=== PATIENT | female | born 1970 | race Caucasian/White ===

== ENCOUNTER 2017-12-07 07:01 | Day surgery (SDC) | payer OTHER ==
[~2017-12-07] VITALS: Ht 167.6 cm; Wt 54.7 kg
[2017-12-07 07:31] VITALS: BP 119/77
[2017-12-07] MEDS ORDERED: NONE PER PT (07:33)
[2017-12-07] MEDS ORDERED: LIDOCAINE-MPF 1%, 2ML ONE (07:37)
[2017-12-07] MEDS ORDERED: BUPIVACAINE/PF-EPI 0.5% 1:200K ONE (07:45)
[2017-12-07] MEDS ORDERED: NEOSPORIN OINT, 15GM ONE (07:45)
[2017-12-07 07:47] LABS: HCG UR SG 1.033 (1.003-1.030)
[2017-12-07] MEDS ORDERED: LACTATED RINGERS 1,000 ML IV SCH (07:56)
[2017-12-07] MEDS ORDERED: LIDOCAINE-MPF 1%, 2ML INFIL ONE (08:00)
[2017-12-07] MEDS ORDERED: MIDAZOLAM 1 MG/ML, 2ML ONE (08:06)
[2017-12-07] MEDS ORDERED: FENTANYL PF 250 MCG/5ML ONE (08:06)
[2017-12-07] MEDS ORDERED: PROPOFOL 10 MG/ML, 20ML ONE (08:10)
[2017-12-07] MEDS ORDERED: WATER-INJECTION,STERILE 10 ML IV ONE (08:13)
[2017-12-07] MEDS ORDERED: ONDANSETRON 2MG/ML, 2ML ONE (08:13)
[2017-12-07] MEDS ORDERED: CEFAZOLIN 1,000 MG ONE ×2 (08:13)
[2017-12-07] MEDS ORDERED: DEXAMETHASONE 4 MG/ML, 1ML ONE ×2 (08:13)
[2017-12-07] MEDS ORDERED: ACETAMINOPHEN 325 MG TABLET PO PRN (08:30)
[2017-12-07] MEDS ORDERED: HYDROmorphone 1 MG/ML, 1ML IV PRN (08:30)
[2017-12-07] MEDS ORDERED: OXYcodone 5 MG/5 ML ORAL.SOL UDC PO PRN (08:30)
[2017-12-07] MEDS ORDERED: PROMETHAZINE 25 MG/ML, 1ML IM PRN ×2 (08:30)
[2017-12-07] MEDS ORDERED: LABETALOL 5MG/ML, 20ML IV PRN (08:30)
[2017-12-07] MEDS ORDERED: MORPHINE SULFATE 4 MG/ML, 1ML IVPush PRN (08:30)
[2017-12-07] MEDS ORDERED: hydrALAzine 20 MG/ML, 1ML IV PRN (08:30)
[2017-12-07] MEDS ORDERED: PROMETHAZINE 25 MG/ML, 1ML IV PRN (08:30)
[2017-12-07] MEDS ORDERED: FENTANYL PF 100 MCG/2ML IV PRN (08:30)
[2017-12-07] MEDS ORDERED: ONDANSETRON 2MG/ML, 2ML IV PRN (08:30)
[2017-12-07] MEDS ORDERED: MEPERIDINE/PF 25MG/0.5ML IVPush PRN (08:30)
[2017-12-07] MEDS ORDERED: ONDANSETRON ODT 8 MG PO PRN (08:30)
[2017-12-07] MEDS ORDERED: BUPIVACAINE/PF-EPI 0.5% 1:200K INFIL ONE (10:41)
[2017-12-07] MEDS ORDERED: ACETAMINOPHEN 325 MG TABLET ONE (11:23)
== END 2017-12-07 13:15 | disposition home or self-care (01) ==
LOC: OUT 07:01 → EDSTATUS 14:00
PROVIDERS: ATTEND Orthopaedic Surgery
DX: S82.292K Other fracture of shaft of left tibia, subsequent encounter for closed fracture with nonunion (principal); T84.84XA Pain due to internal orthopedic prosthetic devices, implants and grafts, initial encounter; X58.XXXD Exposure to other specified factors, subsequent encounter; Y83.8 Other surgical procedures as the cause of abnormal reaction of the patient, or of later complication, without mention of misadventure at the time of the procedure; Y92.89 Other specified places as the place of occurrence of the external cause; Z88.0 Allergy status to penicillin
CPT/HCPCS: 20680; 27720; 73590; 76001; 81025; 87070; 87075; 87205; C1713; J0690; J1100; J2250; J2405; J2704; J3010; J3490; J7120